=== PATIENT | female | born 2000 | race Caucasian/White ===

== ENCOUNTER 2024-12-31 20:02 | Emergency (ER) | payer OTHER, SELFPAY ==
--- NOTE | ~2024-12-31 | XR_ITS ---
CLINICAL HISTORY: pain, injury 4 view right knee Comparison: None Findings: Bones intact. No dislocations. Joint spaces are maintained. No erosions No joint effusion. No radiopaque foreign body. IMPRESSION: 1. No acute findings. This document has been electronically signed by: Sofia East MD on 12/31/2024 21:07:53
[2024-12-31 20:25] VITALS: BP 117/69; PULSE 84; RESP 16; TEMP 36.8; O2SAT 100; BMI 19.2
--- NOTE | 2024-12-31 20:30 | ED_ITS ---
HPI - General Adult General Chief complaint: Extremity Injury, Lower Stated complaint: right knee hurts from fall Time Seen by Provider: 12/31/24 21:02 Source: patient Mode of arrival: ambulatory Limitations: no limitations History of Present Illness ED Provider: HPI narrative: Patient was healthy was skateboarding lost control and fell on her right knee complaining of swelling of the medial area of the right knee with painful to blood x-ray was done before my evaluation which was negative for fracture Related Data Previous Rx's ?Medication ?Instructions ?Recorded ibuprofen 600 mg tablet 600 mg PO Q6H PRN fever or pain 12/31/24 #30 tabs Allergies Allergy/AdvReac Type Severity Reaction Status Date / Time No Known Allergies Allergy Verified 12/31/24 20:27 Review of Systems Review of Systems: Yes all other systems are reviewed and are negative [facility] Social History Social History Advance Directives: No Advance Directives Information Provided: Yes Do you have a plan to hurt others: No Plan Patient : No Physical Exam ED Vital Signs: Vital Signs - 24 hr 12/31/24 20:25 12/31/24 22:21 Temperature 98.2 F 98.2 F Pulse Rate 84 84 Respiratory Rate 16 16 Blood Pressure 117/69 117/69 Pulse Oximetry 100 100 Oxygen Delivery Method Room Air Room Air BMI result Body Mass Index 19.2 Appearance: Alert. Oriented X3. No acute distress. Neck: Normal inspection. Neck supple. CVS: Normal heart rate and rhythm. Pulses normal. Respiratory: No respiratory distress. Equal air entry bilateral, no wheezing/rales/rhonchi Abdomen: Soft and nontender. Bowel sounds are present, no mass palpable, no CVA tenderness Skin: Skin warm and dry. Normal skin color. Normal skin turgor. Extremities: No lower extremity edema. No calf tenderness right knee swelling of the medial aspect no knee effusion anterior drawer sign negative Kalee sign positive for medial meniscal strain Neuro: Oriented X 3. No motor deficit. No sensory deficit.No cerebellar signs , cranial nerves II-XII intact Course Course Course Narrative: RME performed by Dayna Kirby PA-C. Patient is a 24 year old assigned female at presenting to the emergency department with right knee pain after a skateboarding accident. Detailed physical exam and review of systems are deferred to the community recreation programmer. Imaging ordered. Patient placed back in the waiting room pending room availability and results. Medications Administered Discontinued Medications Generic Name Dose Route Start Last Admin Trade Name Freq PRN Reason Stop Dose Admin Ibuprofen 600 mg 12/31/24 21:40 12/31/24 21:44 Ibuprofen 600 Mg Tablet PO 12/31/24 21:41 600 mg ONCE ONE Administration Medical Decision Making Medical Decision Making MDM Narrative: Patient was able to ambulate with using a knee immobilizer and crutches advised to follow with Orthopedics Radiology Impression Discussion of test interpretation with radiology: I have reviewed the radiologist's reading. Radiologist Impression: NAD Discharge Plan Discharge Clinical Impression: Acute internal derangement of knee Patient Disposition: Home, Self-Care Instructions: Knee Sprain (DC) Additional Instructions: Likely have medial meniscal strain of your right knee Rest your right knee partial weight bearing Wear knee immobilizer crutches for ambulation Follow up with Orthopedics Prescriptions: New ibuprofen 600 mg tablet 600 mg PO Q6H PRN (Reason: fever or pain) Qty: 30 0RF Referrals: Monroe Cantu MD [Physician] - 1 week Interventions: ED Discharge Assessment Last Done: 12/31/24 22:21 Discharge Date/Time: 12/31/24 22:21 Print Language: Kittitian
--- OUTSIDE RECORDS SUMMARY | 2024-12-31 21:34 | XMS_ITS ---
Author Name [facility] Organization Unknown Care Team Organization Name Specialty Phone Email Start Date End Da te [facility] 024 [facility] Primary Care 02/19/2024 [facility] Primary Care 02/19/2024
[2024-12-31] MEDS: Ibuprofen 600 MG TABLET PO (21:44)
[2024-12-31 22:21] VITALS: BP 117/69; PULSE 84; RESP 16; TEMP 36.8; O2SAT 100
== END 2024-12-31 22:21 | disposition home or self-care (01) ==
PROVIDERS: Emergency Provider Internal Medicine; PCP Family Medicine
DX: M23.91 Unspecified internal derangement of right knee (principal); M25.561 Pain in right knee
CPT/HCPCS: 73562; 99283; 99284

== ENCOUNTER → 2024-12-31 20:31 | Outpatient (BNV) | payer OTHER, SELFPAY | PROVIDERS: Emergency Provider Internal Medicine; PCP Family Medicine; Visit Provider Specialist | DX: M25.561 Pain in right knee (principal) | CPT/HCPCS: 73562 ==

== ENCOUNTER 2025-01-19 08:08 | Outpatient (AMB) | payer OTHER, SELFPAY ==
--- NOTE | 2025-01-19 08:57 | MHC.OFFVIS ---
Vital Signs 01/19/25 09:04 Height 5 ft 2 in Weight 105 lb BMI 19.2 Intake Visit Reasons: ER f/u-RT knee medial meniscal strain Intake Note: Madhuri is a 24 year old female who presets today for a evaluation with her mom of her right knee injury, DOI 12/31/24. Patient reports she was skateboarding lost control and fell on her right knee. She has complaints of swelling of the medial area of the knee. Patients pain is a 5/10 today. She has noticed that she is unable to bend her knee at the moment. Patient notices that she was having discomfort/pain when she was going up the stairs. She tried Advil with mild relief. IMPRESSION: 1. No acute findings. Allergies No Known Allergies Allergy (Verified 01/19/25 09:02) HPI HPI ER f/u-RT knee medial meniscal strain: Details: Ms. Casillas is a 24 year old female who presets to the office today accompanied by her mother after she sustained a right knee injury on 12/31/24. She stated that she was skateboarding and lost control falling off and landing directly onto the right medial aspect of the knee. She presented to the emergency department where x-rays were obtained and negative for any acute fracture and instructed to follow up with orthopedics outpatient. She reports that the majority of her pain is located on the medial aspect of the knee which is accompanied by resolving ecchymosis. She has difficulty with bending her knee due to pain. Does not report any sensation of mechanical blockage. [facility] Social History (Updated 01/19/25 @ 09:03 by Saw Palomino) Alcohol intake: current Alcohol intake frequency: holidays/special occasions only e-Cigarette/Vaping Use: Currently Using Current occupation: Building Services Technician/ left hand dominant Review of Systems Const All systems reviewed & are unremarkable except as noted in HPI and below Physical Exam Vital Signs: BMI result Body Mass Index 19.2 Const General: cooperative, healthy appearing and no acute distress Resp Effort & Inspection: normal respiratory effort and able to speak in complete sentences Cardio Rate: regular rate Peripheral pulses: Peripheral pulses 2+ throughout Skin Lesions: no lesions Rashes: no rashes Extrem Other: Right knee resolving ecchymosis on the medial aspect of the knee. Range of motion 0-90 degrees without mechanical blockage. Positive Rosalio's medial joint line. Negative anterior drawer. NVI. Assessment & Plan Assessment & Plan (1) Acute medial meniscal injury of right knee: Code(s): S83.8X1A - Sprain of other specified parts of right knee, initial encounter Category: Medical Plan Ms. Casillas is a 24 year old female who presets to the office today accompanied by her mother after she sustained a right knee injury on 12/31/24. She stated that she was skateboarding and lost control falling off and landing directly onto the right medial aspect of the knee. She presented to the emergency department where x-rays were obtained and negative for any acute fracture and instructed to follow up with orthopedics outpatient. She reports that the majority of her pain is located on the medial aspect of the knee which is accompanied by resolving ecchymosis. She has difficulty with bending her knee due to pain. Does not report any sensation of mechanical blockage. On the office today, the patient demonstrates tenderness to palpation along the medial joint line accompanied by a positive Rosalio's. Therefore, we will go forward with an MRI to further evaluate the integrity of the right knee and surrounding structures. She was provided with my business card and will follow up via telephone after the MRI is complete, sooner if needed. X-rays of the right knee which were obtained while in the office today and were reviewed by me, Belle Morales PA-C, revealed no acute fracture dislocation. Additional x-rays were obtained on 12/31/2024 while in the emergency department which were also negative for any acute fracture or dislocation. Orders: Orders XR knee RT 2V Today M25.569 - Pain in unspecified knee XR knee LT 1V Today M25.569 - Pain in unspecified knee MR knee RT wo con Today S83.8X1A - Sprain of other specified parts of right knee, initial encounter Coding Level of Care Code New Pt Level 4 (50403) Diagnoses Acute medial meniscal injury of right knee S83.8X1A
[2025-01-19 09:04] VITALS: BMI 19.2
== END 2025-01-19 09:28 | disposition home or self-care (01) ==
LOC: HO.HOS 08:08
PROVIDERS: PCP Family Medicine; Visit Provider Physician Assistant
DX: S83.8X1A Sprain of other specified parts of right knee, initial encounter (principal)
CPT/HCPCS: 99204

== ENCOUNTER → 2025-01-19 08:28 | Outpatient (BNV) | payer OTHER, SELFPAY | PROVIDERS: Visit Provider Radiology Diagnostic Radiology | DX: M25.561 Pain in right knee (principal) | CPT/HCPCS: 73560 ==

== ENCOUNTER 2025-01-19 09:21 | Outpatient (REF) | payer OTHER, SELFPAY ==
--- NOTE | ~2025-01-19 | XR_ITS ---
EXAMINATION: XR KNEE, RIGHT CLINICAL INFORMATION: M25.569 - Pain in unspecified knee COMPARISON: 12/31/2024. TECHNIQUE: AP bilateral knees standing, and patellofemoral view right knee. FINDINGS: Left Knee: Normal imaging appearance. Preserved joint spaces. Normal soft tissues. Left Knee: No fracture, dislocation, or suspicious bone lesion. Joint spaces are preserved. Normal knee and patellar alignment. Normal soft tissues. XR/XR knee RT 2V IMPRESSION: 1. Normal right knee. Electronically signed by: Vishal Jaime MD 01/22/2025 09:57 AM EDT
== END 2025-01-19 09:22 | disposition home or self-care (01) ==
LOC: HO.HOSX 09:21
PROVIDERS: Visit Provider Physician Assistant
DX: M25.569 Pain in unspecified knee (principal); S83.8X1A Sprain of other specified parts of right knee, initial encounter
CPT/HCPCS: 73560; 99202

== ENCOUNTER 2025-01-26 19:03 | Outpatient (REF) | payer OTHER, SELFPAY ==
--- NOTE | ~2025-01-26 | MR_ITS ---
EXAMINATION: MRI RIGHT KNEE WITHOUT CONTRAST HISTORY: S83.8X1A - Sprain of other specified parts of right knee, initial encounter COMPARISON: Correlation is made with plain films of the right knee dated 12/31/2024 and 01/19/2025. TECHNIQUE: Coronal T1 and fat-suppressed proton density, sagittal proton density and fat-suppressed proton density, and axial fat suppressed T2 weighted MR images of the right knee were obtained. FINDINGS: Bone marrow: There are small foci of marrow edema involving the medial femoral condyle collateral ligament and the posterior aspect of the lateral femoral condyle, consistent with bone contusions. Joint effusion: There is no joint effusion. Dawn's cyst: There is no Dawn's cyst. Articular cartilage: Intact Muscles/soft tissues: The visualized muscles demonstrate normal signal intensity. Anterior cruciate ligament: Intact Posterior cruciate ligament: Intact Medial collateral ligament: There is edema about the medial collateral ligament. There is a focal partial-thickness tear of the origin of the medial collateral ligament. Lateral collateral ligament: Intact Medial meniscus: Intact Lateral meniscus: Intact Flexor mechanism: The popliteus, gastrocnemius, and hamstring tendons are intact. Quadriceps tendon: Intact Patellar tendon: Intact Patellar retinacula: Intact MR/MR knee RT wo con IMPRESSION: 1. Small bone contusions involving the medial femoral condyle adjacent to the origin of the medial collateral ligament and at the posterior aspect of the lateral femoral condyle. 2. Partial tear of the origin of the medial collateral ligament. Electronically signed by: Frederic Mathews MD 01/29/2025 07:56 AM EDT
--- OUTSIDE RECORDS SUMMARY | 2025-01-26 19:06 | XMS_ITS | Encounter Summary ---
Author Organization [facility] Address [address] [place] [address] Care Team Providers Care Shade Classifier Name Role Phone Shelly Lundberg MD Primary Care Prov ider Reason for Visit * Reason Comments E-prescribe Rx Request Encounter Details Date Type Department Care Team Description 11/20/2019 Refill Pediatrics - [address] [address] Robb Lyons MD E-prescribe Rx Request Social History Tobacco Use Types Packs/Day Years Used Date Smoking Tobacco: Never Smokeless Tobacco: Never Alcohol Use Standard Drinks/Week Comments No 0 (1 standard drink = 0.6 oz pur e alcohol) Sex Assigned at Date Recorded Not on file Job Start Date Occupation Industry Not on file Not on file Not on file documented as of this encounter Miscellaneous Notes * Telephone Encounter - Charisse Long - 11/20/2019 8:13 AM EST When was patients last PE/WCC? 10/10/2019 Last seen for anxiety 05/16/2019 Last physical When is patients next PE/WCC scheduled? 12/11/2019 Med ck Shelly Lundberg RX REQUEST WHEN MED IS ON THE LIST: All of the medications requested were on the CURRENT MEDS list Did you check the Pharmacy information above?: YES Indicate how soon the patient needs the script: BY THE END OF THE DAY Patient would like script to be: E-PRESCRIBED/FAXED TO PHARMACY Is the doctor here today?: YES Can the message wait until the doctor returns?: n/a Has the patient been told that the prescription will not be filled until the end of the day? YES Shelly Lundberg Payor: [employer] FFS / Plan: [employer] / Product Type: MEDICAID RISK documented in this encounter Plan of Treatment Not on file documented as of this encounter Visit Diagnoses Diagnosis Chronic seasonal allergic rhinitis due to pollen documented in this encounter Care Teams Shade Classifier Relationship Specialty Start Date End Date Shelly Lundberg MD [address] [place] [id number] PCP - General Pediatrics 02/23/15 documented as of this encounter
--- OUTSIDE RECORDS SUMMARY | 2025-01-26 19:06 | XMS_ITS | Encounter Summary ---
Author Organization [facility] Address [address] [place] [address] Care Team Providers Care Pharmacy Clinical Specialist Name Role Phone Shelly Lundberg MD Primary Care Prov ider Reason for Visit * Reason Onset Date Comments vaginal problems 01/05/2018 Encounter Details Date Type Department Care Team Description 01/05/2018 Telephone OBGYN - [facility] [address] [place] [address] Shelly Lundberg MD [address] [place] [address] vaginal problems Social History Tobacco Use Types Packs/Day Years Used Date Smoking Tobacco: Never Smokeless Tobacco: Never Alcohol Use Standard Drinks/Week Comments Not Asked 0 (1 standard drink = 0.6 oz pur e alcohol) Sex Assigned at Date Recorded Not on file Job Start Date Occupation Industry Not on file Not on file Not on file documented as of this encounter Miscellaneous Notes * Telephone Encounter - Dominique Oconnor R.N. - 01/05/2018 10:49 AM EDT Spoke with pt's mother- states pt is on abx currently and is c/o vaginal itching. States this has occurred in past from abx treatment. Pt plays softball and can't come in for an appt.-mother asking for Rx. Also advised OTC cream for external itch now. Rx pended * Telephone Encounter - Arelis Cottrell - 01/05/2018 10:44 AM EDT pts mom called states she has a vi - very uncomfortable - please call documented in this encounter Plan of Treatment Not on file documented as of this encounter Visit Diagnoses Not on filedocumented in this encounter Care Teams Pharmacy Clinical Specialist Relationship Specialty Start Date End Date Shelly Lundberg MD [address] [place] [id number] PCP - General Pediatrics 02/23/15 documented as of this encounter
--- OUTSIDE RECORDS SUMMARY | 2025-01-26 19:06 | XMS_ITS | Encounter Summary ---
Author Organization [facility] Address [address] [place] [address] Care Team Providers Care Radiology Transcriptionist Name Role Phone Shelly Lundberg MD Primary Care Prov ider Encounter Details Date Type Department Care Team Description 11/04/2017 Hospital Medical Records [address] [place] [address] Shakeel Razo [address] [place] [address] Social History Tobacco Use Types Packs/Day Years Used Date Smoking Tobacco: Never Smokeless Tobacco: Never Alcohol Use Standard Drinks/Week Comments No 0 (1 standard drink = 0.6 oz pur e alcohol) Sex Assigned at Date Recorded Not on file Job Start Date Occupation Industry Not on file Not on file Not on file documented as of this encounter Plan of Treatment Not on file documented as of this encounter Visit Diagnoses Not on filedocumented in this encounter Care Teams Radiology Transcriptionist Relationship Specialty Start Date End Date Shelly Lundberg MD [address] [place] [address] PCP - General Pediatrics 02/23/15 documented as of this encounter
--- OUTSIDE RECORDS SUMMARY | 2025-01-26 19:06 | XMS_ITS | Encounter Summary ---
Author Organization [facility] Address [address] [place] [address] Care Team Providers Care Digital Media Analyst Name Role Phone Shelly Lundberg MD Primary Care Prov ider Reason for Visit * Reason Comments E-prescribe Rx Request Encounter Details Date Type Department Care Team Description 11/13/2021 Refill Gastroenterology [address] [place] [id number] Dina Dangelo MD E-prescribe Rx Request Social History Tobacco [...] encounter Miscellaneous Notes * Telephone Encounter - Cheyenne Coats M.A. - 11/13/2021 8:06 AM EST Jeovany - 02/05/2021 documented in this encounter Plan of Treatment Not on file documented as of this encounter Visit Diagnoses Not on filedocumented in this encounter Care Teams Digital Media Analyst Relationship Specialty Start Date End Date Shelly Lundberg MD [address] [place] [id number] PCP - General Pediatrics 02/23/15 documented as of this encounter
--- OUTSIDE RECORDS SUMMARY | 2025-01-26 19:06 | XMS_ITS | Clinical Summary ---
Author Organization [facility] Address [address] [place] [address] Care Team Providers Care Abstract Clerk Name Role Phone Shelly Lundberg MD Primary Care Prov ider Allergies Active Allergy Reactions Severity Noted Date Comments Seasonal Allergies 08/30/2012 Congestions, sneezing in summer and spring Medications Medication Sig Dispensed Refills Start Date End Date Status clindamycin (CLINDAGEL) 1 % gel APPLY 2 TIMES A DAY 30 g 2 01/02/2019 Active loratadine (CLARITIN) 10 MG tabletIndications: Chronic seasonal allergic rhinitis due to pollen TAKE 1 TABLET BY MOUTH EVERY DAY 30 Tab 6 11/20/2019 Active KETOCONAZOLE, TOPICAL, 1 % Shampoo Apply 1 Applicator topically daily for 30 days. 1 Bottle 2 12/03/2020 Active ketoconazole (NIZORAL) 2 % cream 1 application 2 times a day 15 g 1 12/05/2020 Active EPINEPHrine (EPIPEN 2-TAISHA) 0.3 MG/0.3ML Solution Auto-injector Inject 1 Device as directed as needed (anaphylaxis). Use as directed 2 Each 3 12/19/2020 Active polyethylene glycol (GLYCOLAX) 17 GM/SCOOP powder Take 17 g by mouth daily. 527 g 11 01/13/2021 Active fluticasone (Flonase) 50 MCG/ACT nasal spray One squirt each nostril daily 1 Bottle 3 01/28/2021 Active Fluocinolone Acetonide Scalp ([place]-Smoothe/FS Scalp) 0.01 % Oil Apply 1 Squirt topically every evening. For 7 night then once weekly thereafter. Wash off in the morning 2 Bottle 0 02/05/2021 Active spironolactone (ALDACTONE) 100 MG tablet TAKE 1 TABLET BY MOUTH EVERY DAY 30 tablet 5 08/11/2021 Active norethindrone (MICRONOR) 0.35 MG tablet Take 1 Tablet by mouth daily. 28 Tablet 11 01/06/2022 Active venlafaxine (EFFEXOR-XR) 150 MG 24 hr capsule Take 1 Capsule by mouth daily for 360 days. 30 Capsule 11 02/09/2022 Active omeprazole (PRILOSEC) 20 MG capsule TAKE 1 CAPSULE BY MOUTH DAILY. TAKE IN THE MORNING ON EMPTY STOMACH, WAIT 30 MINUTES AND THEN EAT TO ACTIVATE MEDICATION 90 Capsule 3 03/16/2022 Active hydrOXYzine (VISTARIL) 25 MG capsule TAKE 1 CAPSULE BY MOUTH EVERY DAY 30 Capsule 1 05/25/2022 Active famotidine (PEPCID) 20 MG tablet TAKE 1 TABLET BY MOUTH TWICE A DAY 180 Tablet 1 11/17/2022 Active Active Problems Problem Noted Date Suicidal ideations 12/25/2021 Overview: Took ten 25 mg of vistaril states it was because sh ewas too anxious. Was evaluted by N. The report says that they will establish outpatient therapy. Frequent headaches 06/14/2018 Hyperlipidemia 05/11/2018 Chronic seasonal allergic rhinitis due t o pollen 11/29/2017 Depression 07/28/2017 Anxiety 07/28/2017 Acne vulgaris 02/11/2016 Eczema 07/23/2010 Epigastric pain Generalized abdominal pain Abdominal bloating Constipation Lactose intolerance Anxiousness Gastritis and duodenitis Resolved Problems Problem Noted Date Resolved Date Panic attack 11/02/2012 01/04/2015 Overview: ? Night terror Heart murmur 08/13/2011 01/04/2015 Overview: Sounds innocent Strep throat 09/12/2009 01/04/2015 Pneumonia, organism unspecified(486) 10/18/2007 01/04/2015 Concussion with no loss of consciousness 008 01/04/2015 Immunizations Name Administration Dates Next Due COVID-19 (Pfizer) Pt Reported 02/10/2021 DTaP 04/15/2006, 3,2002,08/14,2002 Gardasil 9 (Hpv) 11/11/2018,07/13/2018, 8 HIB 07/17/2003, 3,2002,06/12 Hepatitis B-3 Dose (<19yrs) 01/11/2003, 2,2002 Influenza (> 6 Months) 07/11/2018,2016,07/02/2015,07/19,08/08/2013,08/02/2012,07/09/2011 ,07/23/2010,07/26/2009,06/28/2008,06/27,07/08/2006,07/23/2005 Influenza (>6 Months) Split Preservative Free 07/06/2016 Influenza Flu (PT Reported) 07/10/2020 Influenza H1N1 Pandemic Flu Vaccine 07/15/2009 MMR (Gizlmze-Vkenl-Jczbhvn) 04/15/2006, 3 Meningococcal (Menactra) 05/11/2018,01/03/2014 Pneumococcal(Pedi) Conjugate PCV-7 04/09,2002,2002,06/12 Polio (IPV) 04/15/2006, 3,2002,06/12 Tdap 01/03/2014 Varicella 07/23/2010,04/09/2003 Family History Medical History Relation Name Comments Allergies Father epilepsy Father CA Lung Maternal Grandfather , age 70 Stroke Maternal Grandfather first M I in his 40's; was a smoker Relation Name Status Comments Father Alive 1968 Maternal Grandfather Mother Alive 1965 Sister Alive 1994 Social History Tobacco Use Types Packs/Day Years Used Date Smoking Tobacco: Never Smokeless Tobacco: Never Tobacco Cessation:Counseling Given: No Alcohol Use Standard Drinks/Week Comments No 0 (1 standard drink = 0.6 oz pur e alcohol) Sex Assigned at Date Recorded Not on file Job Start Date Occupation Industry Not on file Not on file Not on file Last Filed Vital Signs Vital Sign Reading Time Taken Comments Blood Pressure 104/70 02/09/2022 11:20 AM EDT Pulse 72 02/09/2022 11:20 AM EDT Temperature 36.3 ??C (97.3 ??F) 02/09/2022 11:20 AM E DT Respiratory Rate 16 03/08/2019 4:13 PM EDT Oxygen Saturation 98% 12/03/2011 2:06 PM EST Inhaled Oxygen Concentration - - Weight 55.4 kg (122 lb 3.2 oz) 02/09/2022 11:20 AM EDT Height 157.5 cm (5' 2 ) 01/06/2022 4:11 PM EDT Body Mass Index 22.35 01/06/2022 4:11 PM EDT Plan of Treatment Health Maintenance Due Date Last Done Comments GONORRHEA & CHLAMYDIA SCREENING 10/30/2021 10/30/2020, 09/03/2020, 05/16/2019, Additional history exists CERVICAL CANCER SCREENING 2023 DTAP/TDAP/TD (7 - Td or Tdap) 01/04/2024, 04/15/2006, 07/17/2003, Additional history exists Covid-19 Vaccine (2022- 4 season) 2024 02/10/2021, 01/18/2021 DEPRESSION SCREENING/FOLLOWUP 09/27/2024, 02/09/2022, 02/09/2022, Additional history exists SOCIAL NEEDS SCREENING 09/27/2024 , 09/03/2020, 05/16/2019 INFLUENZA (Season Ended) 2025 020 (Completed), 07/10/2020, 07/11/2018, Additional history exists BASELINE HEALTH EXAM 18-39 09/03/2025 09/03/2020, CHOLESTEROL SCREENING 09/03/2025 09/03/2020 , 05/16/2019, 01/18/2019, Additional history exists PNEUMOCOCCAL VACCINE FOR HIG H RISK PATIENTS (#1) 2067 HUMAN PAPILLOMAVIRUS (HPV) Completed 11/11, 07/13/2018, 05/11/2018 Care Teams Abstract Clerk Relationship Specialty Start Date End Date Shelly Lundberg MD [address] [place] [address] PCP - General Pediatrics 02/23/15
--- OUTSIDE RECORDS SUMMARY | 2025-01-26 19:06 | XMS_ITS | Encounter Summary ---
Author Organization [facility] Address [address] [place] [address] Care Team Providers Care Pizza Delivery Driver Name Role Phone Shelly Lundberg MD Primary Care Prov ider Reason for Visit * Reason Comments E-prescribe Rx Request Encounter Details Date Type Department Care Team Description 05/23/2022 Refill Pediatrics - [place] [address] [place] [address] Wandy Quintanilla NP [address] [place] [address] E-prescribe Rx Request Social History Tobacco Use [...] encounter Miscellaneous Notes * Telephone Encounter - Josee Lopez M.A. - 05/25/2022 3:17 PM EDT Script written and awaiting scrap picker by Pharmacy for processing * Telephone Encounter - Wandy Quintanilla NP - 05/25/2022 12:20 PM EDT Approved for refill. She is overdue since January for med check and needs Well visit. * Telephone Encounter - Sam Enma Mihir - 05/25/2022 11:50 AM EDT Rx requested through [facility] witting on 03/20/2022 30/30days w/1 refill Pend order please review and sign. Thank you documented in this encounter Plan of Treatment Not on file documented as of this encounter Visit Diagnoses Not on filedocumented in this encounter Care Teams Pizza Delivery Driver Relationship Specialty Start Date End Date Shelly Lundberg MD [facility] [place] [address] PCP - General Pediatrics 02/23/15 documented as of this encounter
--- OUTSIDE RECORDS SUMMARY | 2025-01-26 19:06 | XMS_ITS | Encounter Summary ---
Author Organization [facility] Address [address] [place] [address] Care Team Providers Care Pen Tender Name Role Phone Shelly Lundberg MD Primary Care Prov ider Reason for Visit * Reason Onset Date Comments refill request 01/19/2019 Encounter Details Date Type Department Care Team Description 01/19/2019 Refill Pediatrics - [place] [address] [place] [address] Shelly Lundberg MD [address] [place] [phone] refill request Social History Tobacco Use Types Packs/Day Years [...] * Telephone Encounter - Charisse Long - 01/19/2019 2:12 PM EDT When was patients last PE/WCC? Was seen yesterday 01/18 for headaches 05/11/2018 Last physical When is patients next PE/WCC scheduled? 05/16/2019 physical and med ck Shelly Lundberg RX REQUEST WHEN MED IS ON THE LIST: One or some of the medications requested were on the HISTORICAL MED list Did you check the Pharmacy information [...] of the day? YES Shelly Lundberg Payor: [employer] FFS / Plan: [employer] / Product Type: MEDICAID RISK documented in this encounter Plan of Treatment Not on file documented as of this encounter Visit Diagnoses Diagnosis Allergic rhinitis due to pollen documented in this encounter Care Teams Pen Tender Relationship Specialty Start Date End Date Shelly Lundberg MD [address] [place] [id number] PCP - General Pediatrics 02/23/15 documented as of this encounter
--- OUTSIDE RECORDS SUMMARY | 2025-01-26 19:06 | XMS_ITS | Encounter Summary ---
Author Organization [facility] Address [address] [place] [address] Care Team Providers Care Communications Department Chairperson Name Role Phone Shelly Lundberg MD Primary Care Prov ider Reason for Visit * Reason Comments E-prescribe Rx Request Encounter Details Date Type Department Care Team Description 03/15/2022 Refill Gastroenterology - [place] [address] [phone] Gregg Sanchez PA-C [address] [address] E-prescribe Rx Request Social History Tobacco Use [...] encounter Miscellaneous Notes * Telephone Encounter - Ale Barajas - 03/16/2022 8:17 AM EDT URVASHI: 02/05/22 No upcoming appointment 30 Day supply documented in this encounter Plan of Treatment Not on file documented as of this encounter Visit Diagnoses Not on filedocumented in this encounter Care Teams Communications Department Chairperson Relationship Specialty Start Date End Date Shelly Lundberg MD [address] [place] [address] PCP - General Pediatrics 02/23/15 documented as of this encounter
--- OUTSIDE RECORDS SUMMARY | 2025-01-26 19:06 | XMS_ITS | Encounter Summary ---
Author Organization [facility] Address [address] [place] [address] Care Team Providers Care Cinetechnician Name Role Phone Shelly Lundberg MD Primary Care Prov ider Reason for Visit * Reason Comments E-prescribe Rx Request for covering dr Encounter Details Date Type Department Care Team Description 12/10/2018 Refill Pediatrics - [address] [address] Robb Lyons MD E-prescribe Rx Request (for covering dr) Social History Tobacco Use Types Packs/Day Years [...] encounter Miscellaneous Notes * Telephone Encounter - Radha Destiney - 12/12/2018 9:15 AM EDT When was patients last PE/WCC? Med check 09/26/18 When is patients next PE/WCC scheduled? Check up due 04/2019 Shelly Lundberg RX REQUEST WHEN MED IS ON THE LIST: All of the medications requested were on the CURRENT MEDS list Did you check the Pharmacy information above?: YES Indicate how soon the patient needs the script: BY THE END OF THE DAY Patient would like script to be: E-PRESCRIBED/FAXED TO PHARMACY Is the doctor here today?: NO Can the message wait until the doctor returns?: NO Has the patient been told that the prescription will not be filled until the end of the day? NO Shelly Lundberg Payor: Ecelles Carson FFS / Plan: [employer]IANCE / Product Type: MEDICAID RISK documented in this encounter Plan of Treatment Not on file documented as of this encounter Visit Diagnoses Diagnosis Chronic seasonal allergic rhinitis due to pollen documented in this encounter Care Teams Cinetechnician Relationship Specialty Start Date End Date Shelly Lundberg MD [address] [place] [address] PCP - General Pediatrics 02/23/15 documented as of this encounter
--- OUTSIDE RECORDS SUMMARY | 2025-01-26 19:06 | XMS_ITS | Encounter Summary ---
Author Organization [facility] Address [address] [place] [address] Care Team Providers Care Peoplesoft Hcm Developer Name Role Phone Shelly Lundberg MD Primary Care Prov ider Reason for Visit * Reason Onset Date Comments Prior Authorization 02/06/2021 Dapsone 5% G el Encounter Details Date Type Department Care Team Description 02/06/2021 Telephone Dermatology - [address] [phone] Mere Garcia PA-C Prior Authorization (Dapsone 5% Gel) Social History Tobacco Use Types Packs/Day Years Used Date Smoking Tobacco: Never Smokeless Tobacco: Never Alcohol Use Standard Drinks/Week Comments No 0 (1 standard drink = 0.6 oz pur e alcohol) Sex Assigned at Date Recorded Not on file Job Start Date Occupation Industry Not on file Not on file Not on file COVID-19 Exposure Response Date Recorded In the last month, have you been in contact with someone who was confirmed or suspected to have Coronavirus / COVID-19? No / Unsure 02/05/2021 2:33 PM EDT documented as of this encounter Miscellaneous Notes * Telephone Encounter - April Díaz M.A. - 02/10/2021 8:43 AM EDT Approval for Dapsone 5% gel. Approved from 02/07/2021-02/08/2022. Reference # [id number] [facility] Pharmacy notified by fax. * Telephone Encounter - April Díaz M.A. 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 Case # [id number] Faxed 02/05/2021 office notes to ES with Case # showing patient has tried and failed differin and tretinoin. * Telephone Encounter - Grace Benjamin - 02/06/2021 8:56 AM EDT Prior Authorization for Medication-do not complete and send this encounter unless you have the fax from the pharmacy. Is this a Cover My Meds request: Yes -- Guardado Code [id number] Name of Medication Dapsone 5% Gel Dose of Medication What is the RX # from the faxed refill? How does patient take this med? What Pharmacy did the fax come from: [facility] Pharmacy fax #: [phone] [employer] Party Information from fax: What Prescription Plan does the patient have? BIN/PCN if applicable: Cardholder ID: Person Code: Relationship Code: Help desk phone: documented in this encounter Plan of Treatment Not on file documented as of this encounter Visit Diagnoses Not on filedocumented in this encounter Care Teams Peoplesoft Hcm Developer Relationship Specialty Start Date End Date Shelly Lundberg MD [address] [place] [phone] PCP - General Pediatrics 02/23/15 documented as of this encounter
--- OUTSIDE RECORDS SUMMARY | 2025-01-26 19:06 | XMS_ITS | Encounter Summary ---
Author Organization [facility] Address [address] [place] [address] Care Team Providers Care Financial Services Representative Name Role Phone Shelly Lundberg MD Primary Care Prov ider Reason for Visit * Reason Comments E-prescribe Rx Request Encounter Details Date Type Department Care Team Description 11/17/2022 Refill Gastroenterology - [place] [address] [phone] Gregg Sanchez PA-C [address] [address] E-prescribe Rx Request Social History Tobacco Use [...] encounter Miscellaneous Notes * Telephone Encounter - Maren Merchant - 11/17/2022 9:25 AM EST Jeovany- 02/05/21 Nov- none documented in this encounter Plan of Treatment Not on file documented as of this encounter Visit Diagnoses Not on filedocumented in this encounter Care Teams Financial Services Representative Relationship Specialty Start Date End Date BeauShelly Degroot MD [address] [place] [address] PCP - General Pediatrics 02/23/15 documented as of this encounter
--- OUTSIDE RECORDS SUMMARY | 2025-01-26 19:06 | XMS_ITS | Encounter Summary ---
Author Organization [facility] Address [address] [place] [address] Care Team Providers Care Closing Coordinator Name Role Phone Shelly Lundberg MD Primary Care Prov ider Reason for Visit * Reason Onset Date Comments medication problems 02/23/2019 Encounter Details Date Type Department Care Team Description 02/23/2019 Telephone Pediatrics - [address] [address] Shlely Lundberg MD [address] [place] [address] medication problems Social History Tobacco Use Types Packs/Day [...] Miscellaneous Notes * Telephone Encounter - Radha Cabello - 02/23/2019 8:35 AM EDT What is the name of the medication patient is having a problem with?: trimethoprim-polymyxin b (POLYTRIM) ophthalmic solution 1 Bottle 1 02/15/2019 02/20/2019 Sig - Route: apply 1 Drop to the eye 3 times daily for 5 days. - Ophthalmic What is the problem?: Alternative requested: on backorder Is the patient calling about the problem? NO If the patient is not the caller who is? [facility] Is this a NEW medication?: YES How long has the patient been taking this medication? Written 02/15/19 Who prescribed this medication for the patient? Clemencia Razo Who is patients PCP?: Shelly Lundberg Payor: [employer] FFS / Plan: [facility] [employer] / Product Type: MEDICAID RISK documented in this encounter Plan of Treatment Not on file documented as of this encounter Visit Diagnoses Not on filedocumented in this encounter Care Teams Closing Coordinator Relationship Specialty Start Date End Date Shelly Lundberg MD [address] [place] [address] PCP - General Pediatrics 02/23/15 documented as of this encounter
--- OUTSIDE RECORDS SUMMARY | 2025-01-26 19:06 | XMS_ITS | Encounter Summary ---
Author Organization [facility] Address [address] [place] [address] Care Team Providers Care Perioperative Manager Name Role Phone Shelly Lundberg MD Primary Care Prov ider Encounter Details Date Type Department Care Team Description 02/07/2019 Director Medical Science Report Medical Records [address] [place] [address] John Clements MD Social History Tobacco Use Types Packs/Day Years [...] on filedocumented in this encounter Care Teams Perioperative Manager Relationship Specialty Start Date End Date Shelly Lundberg MD [address] [place] [address] PCP - General Pediatrics 02/23/15 documented as of this encounter
--- OUTSIDE RECORDS SUMMARY | 2025-01-26 19:06 | XMS_ITS | Encounter Summary ---
Author Organization [facility] Address [address] [place] [address] Care Team Providers Care Manager Biostatistics Name Role Phone Shelly Lundberg MD Primary Care Prov ider Reason for Visit * Reason Comments E-prescribe Rx Request For covering doct or Encounter Details Date Type Department Care Team Description 08/17/2019 Refill Pediatrics - [address] [address] Robb Lyons MD E-prescribe Rx Request (For covering doctor) Social History Tobacco Use Types Packs/Day Years [...] encounter Miscellaneous Notes * Telephone Encounter - Lynda Martinez - 08/17/2019 10:18 AM EST When was patients last PE/WCC? 05/16/2019 wcc med check When is patients next PE/WCC scheduled? Due 04/2020 Shelly Lundberg RX REQUEST WHEN MED IS ON THE LIST: All of the medications requested were on the CURRENT MEDS list Did you check the Pharmacy information above?: NO Indicate how soon the patient needs the script: BY THE END OF THE DAY Patient would like script to be: E-PRESCRIBED/FAXED TO PHARMACY Is the doctor here today?: NO Can the message wait until the doctor returns?: NO Has the patient been told that the prescription will not be filled until the end of the day? NO Shelly Lundberg Payor: [employer] FFS / Plan: [employer] ALLIANCE / Product Type: MEDICAID RISK documented in this encounter Plan of Treatment Not on file documented as of this encounter Visit Diagnoses Diagnosis Chronic seasonal allergic rhinitis due to pollen documented in this encounter Care Teams Manager Biostatistics Relationship Specialty Start Date End Date Shelly Lundberg MD [address] [place] [address] PCP - General Pediatrics 02/23/15 documented as of this encounter
--- OUTSIDE RECORDS SUMMARY | 2025-01-26 19:06 | XMS_ITS | Encounter Summary ---
Author Organization [facility] Address [address] [place] [address] Care Team Providers Care Civil Engineering Project Manager Name Role Phone Shelly Lundberg MD Primary Care Prov ider Reason for Visit * Reason Onset Date Comments Faxed Refill 08/15/2018 Encounter Details Date Type Department Care Team Description 08/15/2018 Refill Pediatrics - [address] [address] Shelly Lundberg MD [address] [place] [address] Faxed Refill Social History Tobacco Use Types Packs/Day Years [...] * Telephone Encounter - Radha Cabello - 08/15/2018 12:38 PM EST When was patients last PE/WCC? Med check 08/12/18 When is patients next PE/WCC scheduled? Med check 08/26/18;check up due 04/2019 Shelly Lundberg RX REQUEST [...] of the day? NO Shelly Lundberg Payor: [employer] FFS / Plan: [employer]IANCE / Product Type: MEDICAID RISK documented in this encounter Plan of Treatment Not on file documented as of this encounter Visit Diagnoses Not on filedocumented in this encounter Care Teams Civil Engineering Project Manager Relationship Specialty Start Date End Date Shelly Lundberg MD [address] [place] [address] PCP - General Pediatrics 02/23/15 documented as of this encounter
--- OUTSIDE RECORDS SUMMARY | 2025-01-26 19:06 | XMS_ITS | Encounter Summary ---
Author Organization [facility] Address [address] [place] [address] Care Team Providers Care Cinder Crane Operator Name Role Phone Shelly Lundberg MD Primary Care Prov ider Reason for Visit * Reason Onset Date Comments Medication 12/29/2021 Encounter Details Date Type Department Care Team Description 12/29/2021 Telephone Pediatrics - [address] [address] Shelly Lundberg MD [address] [place] [address] Medication Social History Tobacco Use Types Packs/Day Years [...] encounter Miscellaneous Notes * Telephone Encounter - Christian Lundberg MD - 12/29/2021 10:55 AM EDT I spoke to mom about the medication. I will see Madhuri next week. She is going to [place] to be with agrand parents and able to relax as mom is saying. * Telephone Encounter - Fiorella Zhao M.A. - 12/29/2021 10:26 AM EDT Patients mom wants to know why the Ferrous sulfate was sent to pharmacy since pt was not seen recently and rx was not spoken about to mom or pt before it was sent out. * Telephone Encounter - Dotty Omalley - 12/29/2021 10:10 AM EDT Pt mom calling, states she went and picked up ferrous sulfate solution - this BSR sees that Dr. Abarca put in a new script on 12/25 for this Rx - Mom wondering why this was prescribed since pt was not seen and this Rx was not spoken about to mom or pt before it was sent out - Please advise documented in this encounter Plan of Treatment Not on file documented as of this encounter Visit Diagnoses Not on filedocumented in this encounter Care Teams Cinder Crane Operator Relationship Specialty Start Date End Date Shelly Lundberg MD [address] [place] [address] PCP - General Pediatrics 02/23/15 documented as of this encounter
--- OUTSIDE RECORDS SUMMARY | 2025-01-26 19:07 | XMS_ITS | Encounter Summary ---
Author Organization [facility] Address [address] [place] [address] Care Team Providers Care Senior Oracle Applications Developer Name Role Phone Shelly Lundberg MD Primary Care Prov ider Encounter Details Date Type Department Care Team Description 01/21/2021 Orders Only Gastroenterology - [address] [place] [address] Dina Dangelo MD Social History Tobacco Use Types Packs/Day [...] have Coronavirus / COVID-19? No / Unsure 01/13/2021 1:32 PM EDT documented as of this encounter Plan of Treatment Not on file documented as of this encounter Visit Diagnoses Not on filedocumented in this encounter Care Teams Senior Oracle Applications Developer Relationship Specialty Start Date End Date Shelly Lundberg MD [address] [place] [address] PCP - General Pediatrics 02/23/15 documented as of this encounter
--- OUTSIDE RECORDS SUMMARY | 2025-01-26 19:07 | XMS_ITS | Encounter Summary ---
Author Organization [facility] Address [address] [place] [address] Care Team Providers Care Global Regulatory Affairs Manager Name Role Phone Shelly Lundberg MD Primary Care Prov ider Encounter Details Date Type Department Care Team Description 07/21/2017 Transfer Records Medical Records [address] [place] [address] Abstract, Provider Social History Tobacco Use Types Packs/Day Years [...] on filedocumented in this encounter Care Teams Global Regulatory Affairs Manager Relationship Specialty Start Date End Date Shelly Lundberg MD [address] [place] [address] PCP - General Pediatrics 02/23/15 documented as of this encounter
--- OUTSIDE RECORDS SUMMARY | 2025-01-26 19:07 | XMS_ITS | Encounter Summary ---
Author Organization [facility] Address [address] [place] [address] Care Team Providers Care Paper Pattern Folder Name Role Phone Shelly Lundberg MD Primary Care Prov ider Encounter Details Date Type Department Care Team Description 01/24/2021 Orders Only Medical Records [address] [place] [address] Dina Dangelo MD Social History Tobacco Use [...] on file documented as of this encounter Procedures Procedure Name Priority Date/Time Associated Diagnosis Comments OUTSIDE PATHOLOGY Routine 01/21/2021 documented in this encounter Results * OUTSIDE PATHOLOGY (01/21/2021) Dina Dangelo MD OUTSIDE LAB documented in this encounter Visit Diagnoses Not on filedocumented in this encounter Care Teams Paper Pattern Folder Relationship Specialty Start Date End Date Shelly Lundberg MD [address] [place] [address] PCP - General Pediatrics 02/23/15 documented as of this encounter
--- OUTSIDE RECORDS SUMMARY | 2025-01-26 19:07 | XMS_ITS | Encounter Summary ---
Author Organization [facility] Address [address] [place] [address] Care Team Providers Care Spring Bender Name Role Phone Shelly Lundberg MD Primary Care Prov ider Encounter Details Date Type Department Care Team Description 01/29/2021 Telephone Gastroenterology - [place] [address] [phone] Gregg Sanchez PA-C [address] [address] Social History Tobacco Use Types Packs/Day Years [...] have Coronavirus / COVID-19? No / Unsure 01/28/2021 1:15 PM EDT documented as of this encounter Miscellaneous Notes * Telephone Encounter - Ale Barajas - 02/06/2021 12:50 PM EDT Left a vm for the patient to call our office back. * Telephone Encounter - Gregg Sanchez PA-C - 02/06/2021 11:25 AM EDT Technically I do not have permission to speak to her mother however relay the message that the medication was called and that she will be getting an after visit summary regarding explanation for the medicines. Please let them know that I ordered omeprazole 20 mg to be taken first thing in the morning on an empty stomach, wait 30 minutes and then eat to activate the medication. I also ordered Mylanta. Am looking for some type of liquid antacid to help protect the stomach from the extra acid which caused the gastritis and duodenitis. Both prescriptions were sent to her pharmacy. * Telephone Encounter - Gregg Sanchez PA-C - 01/29/2021 3:48 PM EDT Thank you for the update and hope that the patient appreciates you contacting her * Telephone Encounter - Ale Barajas - 01/29/2021 2:47 PM EDT Spoke to the patient and let her know that her biopsy from endoscopy was negative for H. Pylori. * Telephone Encounter - Gregg Sanchez PA-C - 01/29/2021 1:12 PM EDT PLease let patient know that the biopsy on her endoscopy was negative for H. pylori. documented in this encounter Plan of Treatment Not on file documented as of this encounter Visit Diagnoses Not on filedocumented in this encounter Care Teams Spring Bender Relationship Specialty Start Date End Date Shelly Lundberg MD [address] [place] [address] PCP - General Pediatrics 02/23/15 documented as of this encounter
== END 2025-01-26 19:04 | disposition home or self-care (01) ==
LOC: HO.MRI 19:03
PROVIDERS: Visit Provider Physician Assistant
DX: S83.8X1A Sprain of other specified parts of right knee, initial encounter (principal)
CPT/HCPCS: 73721

== ENCOUNTER → 2025-01-26 19:13 | Outpatient (BNV) | payer OTHER, SELFPAY | PROVIDERS: Visit Provider Radiology Diagnostic Radiology | DX: S80.01XA Contusion of right knee, initial encounter (principal); S83.411A Sprain of medial collateral ligament of right knee, initial encounter | CPT/HCPCS: 73721 ==